=== PATIENT | male | born 1995 | race Two or more races ===

== ENCOUNTER 2019-11-09 14:35 | Emergency (ER) | payer SELFPAY ==
[~2019-11-09] VITALS: Ht 190.5 cm; Wt 70.8 kg
[2019-11-09] MEDS ORDERED: ACETAMINOPHEN 500 MG TAB PO ONE (15:15)
[2019-11-09 16:19] VITALS: BP 118/75
== END 2019-11-09 17:09 | disposition home or self-care (01) ==
LOC: ER 14:35
DX: S93.601A Unspecified sprain of right foot, initial encounter (principal); X58.XXXA Exposure to other specified factors, initial encounter; Y93.89 Activity, other specified; Y92.89 Other specified places as the place of occurrence of the external cause; Y99.8 Other external cause status
CPT/HCPCS: 73630

== ENCOUNTER 2020-07-01 09:45 | Emergency (ER) | payer MEDICAID ==
[~2020-07-01] VITALS: Ht 190.5 cm; Wt 70.8 kg
[2020-07-01 09:59] VITALS: BP 118/85
== END 2020-07-01 11:16 | disposition home or self-care (01) ==
LOC: ER 09:45
DX: S63.617A Unspecified sprain of left little finger, initial encounter (principal); W22.8XXA Striking against or struck by other objects, initial encounter; Y93.89 Activity, other specified; Y92.89 Other specified places as the place of occurrence of the external cause; Y99.8 Other external cause status
CPT/HCPCS: 73140

== ENCOUNTER 2020-10-06 10:40 | Emergency (ER) | payer MEDICAID ==
[~2020-10-06] VITALS: Ht 190.5 cm; Wt 70.8 kg
[2020-10-06 10:41] VITALS: BP 113/66
[2020-10-06] MEDS ORDERED: KETOROLAC TROMETH 60MG/2ML VIAL IM ONE (12:15)
== END 2020-10-06 13:49 | disposition home or self-care (01) ==
LOC: ER 10:40
DX: S33.5XXA Sprain of ligaments of lumbar spine, initial encounter (principal); W18.39XA Other fall on same level, initial encounter; Y93.89 Activity, other specified; Y92.89 Other specified places as the place of occurrence of the external cause; Y99.8 Other external cause status
CPT/HCPCS: 72100; 96372; 99283; J1885